=== PATIENT | female | born 1990 | race African-American/Black ===

== ENCOUNTER 2022-10-12 02:11 | Emergency (ER) | payer BC, SELFPAY ==
[2022-10-12] MEDS ORDERED: diphenhydrAMINE 50 MG/ML VIAL ONE (04:08)
[2022-10-12] MEDS ORDERED: Metoclopramide HCl 10 MG/2 ML VIAL ONE (04:08)
[2022-10-12] MEDS ORDERED: Ketorolac Tromethamine 30 MG/ML VIAL ONE (04:09)
[2022-10-12 04:41] LABS: ALT (SGPT) 89 U/L (8-55); AST (SGOT) 41 U/L (5-34); Albumin 4.8 g/dL (3.5-5.0); Alkaline Phosphatase 66 U/L (40-110); Anion Gap 15 mmol/L (10-20); BUN (Urea Nitrogen) 12 mg/dL (7.0-18.7); Bilirubin, Total 0.3 mg/dL (0.2-1.2); Calc. Creatinine Clearance 0 mL/min (70-130); Calcium 10.3 mg/dL (7.8-10.44); Carbon Dioxide 25 mmol/L (22-29); Chloride 105 mmol/L (98-107); Estimated GFR 67; Globulin 3.4 g/dL (2.4-3.5); Glucose 154 mg/dL (70-105); Potassium 4.5 mmol/L (3.5-5.1); Protein, Total 8.2 g/dL (6.0-8.3); Sodium 140 mmol/L (136-145)
[2022-10-12 04:46] LABS: #Eosinphils 0.1 10x3/uL (0.0-0.5); #Monocytes 0.3 10x3/uL (0.0-1.1); #Neutrophils 5.4 10x3/uL (1.5-8.4); %Basophils 0.3 % (0.0-2.0); %Eosinophils 0.7 % (0.0-6.0); %Lymphocytes 18.4 % (18.0-47.0); %Monocytes 4.5 % (0.0-10.0); Mean Corpuscular Hemoglobin 26.2 pg (27.0-33.0); Mean Corpuscular Volume 79.3 fl (81.6-98.3); Mean Platelet Volume 10.4 fl (7.4-10.4); Platelet Count 386 10x3/uL (150-450); RBC Distribution Width 13.8 % (11.5-14.5); Red Blood Cell (RBC) Count 4.97 10x6/uL (3.90-5.03); White Blood Cell (WBC) Count 7.1 10x3/uL (3.5-10.5)
[2022-10-12] MEDS ORDERED: Promethazine HCl 25 MG/ML VIAL IVPB SCH (06:15)
== END 2022-10-12 06:50 | disposition home or self-care (01) ==
LOC: CSHERS 02:11
DX: G43.919 Migraine, unspecified, intractable, without status migrainosus (principal)
CPT/HCPCS: 70450; 80053; 85025; 86140; 96365; 96375; J1200; J1885; J2550; J2765